=== PATIENT | female | born 1945 | race Caucasian/White ===

== ENCOUNTER 2018-07-07 05:05 | Observation (INO) ==
--- NOTE | 2018-07-07 05:50 | Emergency Department Note ---
Disposition Clinical Impression: Chest pain Qualifiers: Chest pain type: precordial pain Qualified Code(s): R07.2 - Precordial pain Hypertension Qualifiers: Hypertension type: essential hypertension Qualified Code(s): I10 - Essential (primary) hypertension Disposition: Admitted As Inpatient Condition: Fair General Adult HPI - General Stated complaint: chest pain Time Seen by Provider: 07/07/18 05:18 Source: patient, family Mode of arrival: private vehicle Limitations: no limitations Nursing Notes Reviewed: Yes Vital Signs Reviewed: Yes - History of Present Illness HPI Narrative: Patient is a 73-year-old female with past medical history including coronary artery disease with one stent placement on Plavix, diabetes mellitus type 2, hypertension, presenting with chief complaint of chest pain is 2 AM. The patient states yesterday evening she developed right neck pain and muscle spasms. She woke up around 2 AM to left-sided chest pressure radiating into her left jaw. She states the pain started radiating into the substernal area. She denies any associated symptoms including lightheadedness or dizziness, diaphoresis, nausea, shortness of breath. She states this feels very different from the chest pain she was having with her prior heart attack. Denies fevers or chills, cough. She states she took 4 baby aspirin and chest pain is slightly improved. Patient also denies heavy lifting or trauma. Pain Scale: 5 - Related Data Home Medications Medication Instructions Recorded Confirmed Clopidogrel [Plavix] 75 mg PO QAM 07/29/15 07/07/18 Glimepiride [Amaryl] 4 mg PO BID 07/29/15 07/07/18 Pravastatin Sodium [Pravachol] 40 mg PO HS 07/29/15 07/07/18 Albuterol Sulfate [Proair Hfa] 2 puff IH Q4H PRN 05/04/17 07/07/18 Budesonide/Formoterol 160/4.5 2 puff IH BID 05/04/17 07/07/18 [Symbicort 160/4.5] Ascorbate Calcium [Vitamin C] 500 mg PO DAILY 07/07/18 07/07/18 Aspirin [Adult Aspirin Regimen] 81 mg PO HS 07/07/18 07/07/18 Irbesartan [Avapro] 300 mg PO QAM 07/07/18 07/07/18 Metformin HCl [Glumetza] 1,000 mg PO BID 07/07/18 07/07/18 Metoprolol Succinate [Toprol Xl] 50 mg PO HS 07/07/18 07/07/18 Multivit-Minerals/Folic Acid 200 mcg PO DAILY 07/07/18 07/07/18 [Adult One Daily Gummies] RX: hydroCHLOROthiazide 25 mg PO QAM 07/07/18 07/07/18 [Hydrochlorothiazide] SitaGLIPtin [Januvia] 100 mg PO HS 07/07/18 07/07/18 Allergies Allergy/AdvReac Type Severity Reaction Status Date / Time Amoxicillin [From Augmentin] Allergy Rash Verified 04/25/18 11:52 clavulanic acid Allergy Rash Verified 04/25/18 11:52 [From Augmentin] Penicillins Allergy Difficulty Verified 04/25/18 11:52 Breathing All systems ED: reviewed and negative except as stated. Review of Systems: As Per HPI Constitutional: Denies: fever, chills Cardiovascular: Reports: chest pain. Denies: palpitations Respiratory: Denies: cough, dyspnea Gastrointestinal: Denies: abdominal pain, nausea, vomiting Genitourinary: Reports: dysuria Musculoskeletal: Reports: other (muscle spasm). Denies: back pain Integumentary: Denies: rash Neurological: Denies: headache, weakness Past Medical History - Past Medical History Attestation: Yes The following information was validated with the patient. Source: patient Medical history: Reports: non-contributory Psychiatric history: Reports: no psych history - Social History Smoking Status: Never smoker Smokeless Tobacco Status: No Alcohol use: Reports: none Drug use: Reports: none Physical Exam - General Limitations: no limitations General appearance: alert, in no apparent distress - Head Head exam: atraumatic, normocephalic, normal inspection - Eye Eye exam: Present: normal appearance, EOMI - ENT ENT exam: normal oropharynx, mucous membranes moist - Neck Neck exam: Present: normal inspection, trachea midline - Chest Chest inspection: Present: symmetric chest wall rise, tenderness (Left-sided chest wall tenderness to palpation) - Respiratory Respiratory exam: Present: normal lung sounds bilaterally. Absent: respiratory distress, wheezes - Cardiovascular Cardiovascular exam: Present: regular rate, normal rhythm, systolic murmur - Abdominal Exam Abdominal exam: Present: soft, Non-Tender. Absent: distention - Extremities Exam Extremities exam: Present: normal inspection, normal capillary refill. Absent: tenderness, pedal edema, calf tenderness - Neurological Exam Neurological exam: Present: alert, oriented X3 - Psychiatric Psychiatric exam: Present: normal affect, normal mood - Skin Skin exam: Present: warm, dry, intact, normal color Course Vital Signs Temperature 98.3 F 07/07/18 05:13 Pulse Rate 68 07/07/18 05:13 Respiratory Rate 20 07/07/18 05:13 Blood Pressure 213/96 07/07/18 05:13 O2 Sat by Pulse Oximetry 96 07/07/18 05:13 Temperature 98.3 F 07/07/18 05:13 Pulse Rate 68 07/07/18 05:13 Respiratory Rate 20 07/07/18 05:13 Blood Pressure 213/96 07/07/18 05:13 O2 Sat by Pulse Oximetry 96 07/07/18 05:13 Oxygen Delivery Oxygen Delivery Room Air Medical Decision Making - MDM Narrative Medical decision making narrative: Patient presenting with chest pressure since 0200. She took 4 baby aspirin. Has history of coronary artery disease with one stent placement. We will levon luate for ACS and obtain EKG, chest x-ray, basic lab work. We will give the patient nitroglycerin. Well's for PE score 0. Blood pressure elevated otherwise vitals stable. Urinalysis will also be obtained as the patient is complaining of dysuria. 0630 Chest x-ray imaging results reviewed. No acute cardiopulmonary process. Troponin <0.03. Patient refused the nitroglycerin secondary to giving her headaches. Will admit the patient for chest pain and further ACS evaluation. Hospitalist paged. HEART score 4. Blood pressure improved to systolic 176 06:[address] Lincoln who accepts admission. - Medical Records Medical records reviewed: Yes I reviewed the patient's medical records. - Lab Data Lab results reviewed: Yes I reviewed the patient's lab results. Result diagrams: 07/07/18 05:41 07/07/18 05:41 Lab Results 07/07/18 07/07/18 07/07/18 Range/Units 05:35 05:41 05:41 WBC 6.7 (4.3-11.1) K/mcL RBC 5.04 H (3.82-4.97) M/mcL Hgb 13.4 (11.5-15.4) g/dL Hct 40.8 (35.3-44.9) % MCV 81.0 L (83.0-100.0) fL MCH 26.6 L (28.0-33.3) pg MCHC 32.8 (31.6-35.5) g/dL RDW 12.9 (11.5-14.5) % Plt Count 274 (140-400) K/mcL MPV 8.7 L (9.4-12.4) fL Immature Gran % 0.1 (0-4) % Seg Neutrophils % 68.0 % Lymphocytes % 22.0 % Monocytes % 7.1 % Eosinophils % 2.4 % Basophils % 0.4 % Neutrophils # 4.6 (1.6-8.9) K/mcL Lymphocytes # 1.5 (0.6-4.6) K/mcL Monocytes # 0.5 (0.0-1.3) K/mcL Eosinophils # 0.2 (0.0-0.6) K/mcL Basophils # 0.0 (0.0-0.2) K/mcL Sodium 132 L (136-145) mEq/L Potassium 3.5 (3.5-5.1) mEq/L Chloride 94 L (98-107) mEq/L Carbon Dioxide 31 H (23-29) mEq/L BUN 11 (8-23) mg/dL Creatinine 0.62 (0.60-1.20) mg/dL Est GFR ( Amer) > 60 (> 60) Est GFR (Non-Af Amer) > 60 (> 60) BUN/Creatinine Ratio 18 (6-26) Glucose 159 H (70-105) mg/dL Calculated Osmolality 277 L (280-300) Calcium 9.2 (8.6-10.3) mg/dL Troponin I < 0.03 (< 0.04) ng/mL Urine Color Yellow (Yellow) Urine Clarity Clear (Clear) Urine pH 7.0 (5.0-8.0) pH Units Ur Specific [place] 1.008 L (1.010-1.025) Urine Protein 30 H (Neg-Trace) mg/dL Urine Glucose (UA) Normal (Normal) mg/dL Urine Ketones Negative (Negative) mg/dL Urine Blood Trace H (Negative) Urine Nitrite Negative (Negative) Urine Bilirubin Negative (Negative) Urine Urobilinogen Normal (Normal) mg/dL Ur Leukocyte Esterase Negative (Negative) Urine Microscopic RBC 0-3 (0-3) per hpf Urine Microscopic WBC 0-3 (0-3) per hpf Ur Squamous Epith Cells Few (None-Few) per lpf Urine Bacteria None Seen (None-Few) per hpf Hyaline Casts None Seen (None-Few) per lpf Ur Culture Indicated? NO (NO) - Radiology Data Radiology results reviewed: Yes I reviewed the patient's radiology results. Chest X-Ray 07/07/18 05:19 IMPRESSION: No acute findings. Shallow inspiratory effort. D/ / Peter Bowie / Peter Bowie Interpreting Provider: Peter Bowie - EKG Data EKG #1 EKG attestation: Yes I reviewed and interpreted this EKG. EKG results narrative: EKG obtained at 514 shows sinus rhythm with heart rate 69. No ST elevation or depression. T-wave inversion in aVL. SD interval 209, QRS duration 87, QTC 434. Attestation Statement - Attestation Attestation: Dr. Neff note: Patient was seen in conjunction with ER resident Dr. Carreno; please see her charting for complete documentation. I spent [id number] time with the patient and I agree with the patient's treatment and disposition. Patient had chest pain overnight at rest. She also had chest pain that was associated with movement of her chest wall and her left arm and direct palpation of her chest. Prior presentation is not concerning for ACS in the lateral elements, but her initial onset of chest pain with a known history of prior heart disease is slightly concerning. Initial testing is unremarkable. Examination is consistent with structural chest pain but due to the patient's history and not having such symptoms of chest pain until last night she will be admitted for serial cardiac biomarkers and observation. Accepted by the hospitalist prior to admission. Heart Score - Score History: Slightly Suspicious EKG: Normal Age: Greater than 65 Risk Factors: Equal/Greater than 3 risk factor or history of atherosclerotic disease Troponin: Less than normal limit HEART Score Total: 4
[2018-07-07 06:03] LABS: Basophils % 0.4 %; Eosinophils # 0.2 K/mcL (0.0-0.6); Eosinophils % 2.4 %; Hematocrit 40.8 % (35.3-44.9); Hemoglobin 13.4 g/dL (11.5-15.4); Immature Granulocytes % 0.1 % (0-4); Lymphocytes # 1.5 K/mcL (0.6-4.6); Mean Corpuscular HGB Conc 32.8 g/dL (31.6-35.5); Mean Corpuscular Hemoglobin 26.6 pg (28.0-33.3); Mean Platelet Volume 8.7 fL (9.4-12.4); Monocytes # 0.5 K/mcL (0.0-1.3); Monocytes % 7.1 %; Neutrophils # 4.6 K/mcL (1.6-8.9); Platelet Count 274 K/mcL (140-400); Red Blood Count 5.04 M/mcL (3.82-4.97); Red Cell Distribution Width 12.9 % (11.5-14.5)
[2018-07-07] MEDS: Nitroglycerin 0.4 MG TAB.SUBL SL PRN ×2 (06:18→07:10)
[2018-07-07 06:19] LABS: Troponin I < 0.03 ng/mL (< 0.04)
[2018-07-07 06:23] LABS: Bilirubin,Urine Negative (Negative); Blood,Urine Trace (Negative); Clarity,Urine Clear (Clear); Color,Urine Yellow (Yellow); Glucose,Urine (UA) Normal (Normal); Ketones,Urine Negative (Negative); Leukocyte Esterase,Urine Negative (Negative); Nitrite,Urine Negative (Negative); Protein,Urine 30 mg/dL (Neg-Trace); Specific Gravity,Urine 1.008 (1.010-1.025); Urobilinogen,Urine Normal (Normal)
[2018-07-07 06:25] LABS: Bacteria,Urine None Seen per hpf (None-Few); Hyaline Casts,Urine None Seen per lpf (None-Few); RBC,Urine 0-3 per hpf (0-3); Squamous Epithelial Cell,Urine Few per lpf (None-Few); WBC,Urine 0-3 per hpf (0-3)
[2018-07-07 06:30] LABS: BUN/Creatinine Ratio 18 (6-26); Blood Urea Nitrogen 11 mg/dL (8-23); Calcium 9.2 mg/dL (8.6-10.3); Carbon Dioxide 31 mEq/L (23-29); Chloride 94 mEq/L (98-107); Glucose 159 mg/dL (70-105); Osmolality,Calculated 277 (280-300); Potassium 3.5 mEq/L (3.5-5.1); Sodium 132 mEq/L (136-145); eGFR For Non-African Americans > 60 (> 60)
[2018-07-07] MEDS ORDERED: Mag Hydrox/Al Hydrox/Simeth 30 ML UDC PO PRN (07:53)
[2018-07-07] MEDS ORDERED: Naloxone 0.4 MG/ML INJ IVP PRN (07:53)
[2018-07-07] MEDS ORDERED: Regadenoson 0.4 MG/5 ML SYRINGE IVP ONE (08:48)
[2018-07-07] MEDS ORDERED: METOPROLOL TARTRATE 50 MG PO SCH (09:15)
[2018-07-07] MEDS ORDERED: Metoprolol XL (24 HR) Succ 50 MG TAB.ER.24H PO SCH (09:45)
[2018-07-07] MEDS ORDERED: D5% in Water 1,000 ML IVC PRN (10:24)
[2018-07-07] MEDS ORDERED: Dextrose Gel 15 GM/37.5 ML TUBE PO PRN ×2 (10:24)
[2018-07-07] MEDS ORDERED: *HR* Dextrose 50 % in Water (Syg) 50 ML SYRINGE IVP PRN (10:24)
[2018-07-07] MEDS: Insulin LISPRO 300 UNITS/3 ML VIAL SQ SCH ×3 (11:47→21:21)
--- NOTE | 2018-07-07 13:37 | Internal Med History&Physical ---
Date of Encounter: 07/07/18 Time of Encounter: 09:00 Internal Medicine - H&P: HPI Chief complaint: Chest pain Admitted From: Emergency Dept Plans for Post Hospital Care: Home History of present illness: Ms. Galvin is a 73 year old female patient with a history of coronary artery disease and stents 20 years back who presented to the ER with complaints of chest pain. Patient has been having neck and upper back muscle pain over the past few days but began to have chest pain in the central part of her chest ear lier this morning at around 2 AM. She took 3 pills of baby aspirin initially and her pain did not improve. She took another 3 pills of baby aspirin after that. She eventually came to the ER and was given nitroglycerin which seemed to improve her pain. She denies any fevers or chills. Her was present at bedside reports that she has been having exertional dyspnea. She has not followed up with cardiology for a while. She denies any palpitations. No dizziness or lightheadedness. No fevers or chills. She reports that she had an episode of bronchitis earlier this year which required multiple courses of antibiotics. She presently does not have significant cough or sputum producti on. She does complain of sciatica related pain extending from her back to her lower extremities. She also has been having cramps in her lower extremities intermittently. Past Med Surg Social Fam HX - Past Medical History Attestation: Yes The following information was validated with the patient. Source: patient Medical history: coronary artery disease Psychiatric history: no psych history - Past Surgical History Additional surgical history: stent - Social History Smoking Status: Never smoker Smokeless Tobacco Status: No Alcohol use: none Drug use: none - Family History Father History Unknown: Yes Internal Medicine - H&P: Meds Clopidogrel [Plavix] 75 mg PO QAM 07/29/15 [History] Glimepiride [Amaryl] 4 mg PO BID 07/29/15 [History] Pravastatin Sodium [Pravachol] 40 mg PO HS 07/29/15 [History] Albuterol Sulfate [Proair Hfa] 2 puff IH Q4H PRN 05/04/17 [History] Budesonide/Formoterol 160/4.5 [Symbicort 160/4.5] 2 puff IH BID 02/13/18 [History] Ascorbate Calcium [Vitamin C] 500 mg PO DAILY 07/07/18 [History] Aspirin [Adult Aspirin Regimen] 81 mg PO HS 07/07/18 [History] Irbesartan [Avapro] 300 mg PO QAM 07/07/18 [History] Metformin HCl [Glumetza] 1,000 mg PO BID 07/07/18 [History] Metoprolol Succinate [Toprol Xl] 50 mg PO HS 07/07/18 [History] Multivit-Minerals/Folic Acid [Adult One Daily Gummies] 200 mcg PO DAILY 07/07/18 [History] SitaGLIPtin [Januvia] 100 mg PO HS 07/07/18 [History] hydroCHLOROthiazide [Hydrochlorothiazide] 25 mg PO QAM 07/07/18 [History] Allergy/AdvReac Type Severity Reaction Status Date / Time Amoxicillin [From Augmentin] Allergy Rash Verified 04/25/18 11:52 clavulanic acid Allergy Rash Verified 04/25/18 11:52 [From Augmentin] Penicillins Allergy Difficulty Verified 04/25/18 11:52 Breathing All Systems PM: A 10-system review of systems was performed and is negative for pertinent f indings except as documented above in the HPI. - Constitutional Constitutional: no chills, no fever(s), no night sweats - EENT Eyes: no change in vision, no discharge, no pain, no photophobia Ears: no ear discharge, no ear pain, no tinnitus Nose, mouth and throat: no dysphagia, no nasal discharge, no neck pain, no sore throat - Cardiovascular Cardiovascular ROS IM: chest pain, no diaphoresis, no dyspnea, no lightheadedness, no palpitations, no syncope - Respiratory Respiratory: no cough, no dyspnea, no wheezing, no excessive phlegm production - Gastrointestinal Gastrointestinal: no abdominal pain, no diarrhea, no hematemesis, no hematochezia, no melena, no nausea, no vomiting - Genitourinary Genitourinary: no change in urinary stream, no dysuria, no flank pain, no hematuria - Musculoskeletal Musculoskeletal ROS IM: no numbness, no tingling - Integumentary Integumentary IM: no rash, no unusual bruising - Neurological Neurological ROS: no confusion, no convulsions, no focal weakness, no numbness, no tingling, no tremor(s) - Hematologic/Lymphatic Hematologic/Lymphatic: no easy bruising - Constitutional Vitals: Temp Pulse Resp BP Pulse Ox 98.2 F 71 16 189/89 92 07/07/18 11:39 07/07/18 11:39 07/07/18 11:39 07/07/18 11:39 07/07/18 11:39 General appearance: Present: cooperative, mild distress, A&O X 3, pleasant, answers questions appropriately Exam: General: Patient is alert, no acute distress, oriented x 3 Head: atraumatic, normocephalic, ENT: Mucous membranes moist Eye: normal appearance, PERRL, no scleral icterus, no conjunctival injection Neck: normal inspection, trachea midline, full ROM, no carotid bruits Chest: normal inspection, symmetric chest rise, chest wall tenderness present in the central chest Respiratory: Good respiratory effort. Normal breath sounds. No wheezing or crackles. Cardiovascular: Regular rate and rhythm. s1 and s2 normal systolic murmur . No pedal edema Abdomen: Abdomen is soft, nontender. Bowel sounds are present Musculoskeletal: Spontaneously moving all extremities Skin: warm, dry, intact. Neuro: Alert oriented x 3 normal cranial nerves, no focal deficits Psych: Patient's affect is normal Internal Med - H&P Results - Labs CBC & Chem 7: 07/07/18 05:41 07/07/18 05:41 Labs: Short CBC 07/07/18 Range/Units 05:41 WBC 6.7 (4.3-11.1) K/mcL Hgb 13.4 (11.5-15.4) g/dL Hct 40.8 (35.3-44.9) % Plt Count 274 (140-400) K/mcL Neutrophils # 4.6 (1.6-8.9) K/mcL BMP 07/07/18 05:41 Sodium 132 L Potassium 3.5 Chloride 94 L Carbon Dioxide 31 H BUN 11 Creatinine 0.62 Glucose 159 H Calcium 9.2 Cardiac Enzymes 07/07/18 07/07/18 Range/Units 05:41 10:54 Troponin I < 0.03 0.03 (< 0.04) ng/mL Urine 07/07/18 Range/Units 05:35 Urine Color Yellow (Yellow) Urine Clarity Clear (Clear) Urine pH 7.0 (5.0-8.0) pH Units Ur Specific [place] 1.008 L (1.010-1.025) Urine Protein 30 H (Neg-Trace) mg/dL Urine Glucose (UA) Normal (Normal) mg/dL - EKG Data EKG shows normal: sinus rhythm - EKG Data EKG comments: 07/07/18 13:39 LVH - Impressions ITS Impressions Chest X-Ray 07/07/18 05:19 IMPRESSION: No acute findings. Shallow inspiratory effort. D/ / Peter Bowie / Peter Bowie Interpreting Provider: Peter Bowie - Assessment and Plan (1) Chest pain Current Visit: Yes Status: Acute Assessment and plan: Patient presented with chest pain that is precordial but reproducible. However it was relieved after she received nitroglycerin and patient does have a history of coronary artery disease. High risk for ACS. Will monitor with telemetry. Trend troponins. Troponins are negative, we will set up for a cardiac stress test. Qualifiers: Chest pain type: precordial pain Qualified Code(s): R07.2 - Precordial pain (2) Diabetes mellitus, type 2 Current Visit: Yes Status: Chronic Assessment and plan: Blood sugars will be monitored. Patient will placed on sliding scale insulin. Hold oral anti-glycemic agents for now. Check A1c. Qualifiers: Diabetes mellitus intermodal dispatcher insulin use: without intermodal dispatcher use Diabetes mellitus complication status: with hyperglycemia Qualified Code(s): E11.65 - Type 2 diabetes mellitus with hyperglycemia (3) Coronary artery disease Current Visit: Yes Status: Chronic Assessment and plan: Patient reported chest pain which is being evaluated. Continue aspirin, Plavix and statin. Qualifiers: Coronary Disease-Associated Artery/Lesion type: [place] artery [place] vs. transplanted heart: [place] heart Associated angina: with other forms of angina Qualified Code(s): I25.118 - Atherosclerotic heart disease of [place] coronary artery with other forms of angina pectoris (4) Hypertension Current Visit: Yes Status: Chronic Assessment and plan: Blood pressure was elevated earlier today. We will continue to monitor. Resume home medications. Will place patient on intravenous medications if her blood pressure is persistently greater than 180. Qualifiers: Hypertension type: essential hypertension Qualified Code(s): I10 - Essential (primary) hypertension (5) Moderate aortic stenosis Current Visit: Yes Status: Chronic Assessment and plan: Per echocardiogram done last year, patient had moderate aortic stenosis with a mean gradient of 21 mmHg, peak will of stay is 2.91. Will repeat echocardiogram at this time to reevaluate. - Time Spent With Patient Total time spent is greater than 50% in coordination of care (as documented) at patient's floor/unit and/or counseling patient:
[2018-07-07] MEDS: Acetaminophen 325 MG TABLET PO PRN ×2 (16:12→22:35)
--- NOTE | 2018-07-07 17:23 | Electrocardiograph Report ---
[place] [id number] Test Date: 2018-07-07 Pat Name: Aria Galvin Department: EXAM3 Room: [facility] Gender: F Ground Equipment Mechanic: : [id number] Requested By: Inge Carreno Order Number: [id number] Reading MD: Lu Gurrola Measurements Intervals [place] Rate: 69 P: 33 CT: 209 QRS: 23 QRSD: 87 T: 77 QT: 405 QTc: 434 Interpretive Statements Sinus rhythm LVH with secondary repolarization abnormality Electronically Signed On 07-07-2018 17:21:34 EDT by Lu Gurrola
[2018-07-07] MEDS: hydroCHLOROthiazide 25 MG TABLET PO SCH (17:40)
[2018-07-07] MEDS ORDERED: Budesonide/Formoterol 160/4.5 1 PUFF INH IH SCH (21:00)
[2018-07-07] MEDS: Metoprolol XL (24 HR) Succ 50 MG TAB.ER.24H PO SCH (22:35)
[2018-07-08] MEDS: Ondansetron 4 MG/2 ML VIAL IVP PRN (04:18)
[2018-07-08 04:28] LABS: Prothrombin Time 11.6 Seconds (9.4-12.1)
[2018-07-08 04:32] LABS: Chol/HDL Ratio 2.3 (0-4.9)
[2018-07-08] MEDS: Budesonide/Formoterol 160/4.5 1 PUFF INH IH SCH ×2 (08:17→19:50)
[2018-07-08] MEDS: hydroCHLOROthiazide 25 MG TABLET PO SCH (08:31)
[2018-07-08] MEDS: Acetaminophen 325 MG TABLET PO PRN (08:31)
[2018-07-08] MEDS: Metoprolol XL (24 HR) Succ 50 MG TAB.ER.24H PO SCH (08:32)
[2018-07-08] MEDS: Insulin LISPRO 300 UNITS/3 ML VIAL SQ SCH ×4 (08:32→21:14)
[2018-07-08] MEDS: *HR* Metformin 500 MG TABLET PO SCH ×2 (08:32→17:23)
[2018-07-08] MEDS: Aspirin 81 MG TAB.CHEW PO SCH (08:32)
[2018-07-08 08:56] LABS: Estimated Average Glucose 169 mg/dl; Hemoglobin A1C 7.5 %
--- NOTE | 2018-07-08 15:36 | Internal Med Progress Note ---
Hospitalist Progress Note - Encounter Date of Encounter: 07/08/18 Time of Encounter: 15:35 - Subjective Interval History: Evaluated patient earlier today. Soon after I examined her, she received her medications and has been having complaints of dizziness since then. She states that it is present even when she is lying down but gets worse when she stands up. No chest pain or palpitations. No shortness of breath. - Exam Vitals: Temp Pulse Resp BP Pulse Ox 98.0 F 65 18 157/82 94 07/08/18 11:12 07/08/18 11:12 07/08/18 11:12 07/08/18 11:12 07/08/18 11:12 Exam: General: Patient is alert, mild distress, oriented x 3 ENT: Mucous membranes moist Respiratory: Good respiratory effort. Normal breath sounds. No wheezing or crackles. Cardiovascular: Regular rate and rhythm. s1 and s2 normal No clicks, rubs, gallops, or murmurs. No pedal edema Abdomen: Abdomen is soft, nontender. Bowel sounds are present Musculoskeletal: Spontaneously moving all extremities Skin: warm, dry, intact. Neuro: Alert oriented x 3 normal cranial nerves, no focal deficits - Assessment and Plan (1) Chest pain Current Visit: Yes Status: Acute Assessment and Plan: Chest pain has significantly improved. Most likely musculoskeletal in nature. Stress test negative. Echocardiogram shows normal ejection fraction. Patient does have LV diastolic dysfunction and moderate to severe aortic stenosis. These will need to be followed as outpatient. (2) Diabetes mellitus, type 2 Current Visit: Yes Status: Chronic Assessment and Plan: A1c 7.5. Continue monitoring blood sugars. Patient receiving metformin and subcutaneous insulin (3) Coronary artery disease Current Visit: Yes Status: Chronic Assessment and Plan: Continue aspirin, statin and Plavix. (4) Hypertension Current Visit: Yes Status: Chronic Assessment and Plan: Blood pressure was high last night and she received IV hydralazine. Her blood pressure decreased quickly soon after. It has since improved. However she now describes dizziness. Most likely related to multiple antihypertensive medications she received. Patient reports that she takes metoprolol at night. She did receive this medication today morning in addition to losartan and hydrochlorothiazide. Likely causing her symptoms of dizziness. Will monitor patient overnight in the hospital today. Possibly discharge tomorrow if her symptoms improve. (5) Moderate aortic stenosis Current Visit: Yes Status: Chronic Assessment and Plan: Echocardiogram shows moderate to severe aortic stenosis. Will consult cardiology to evaluate. DVT Prophylaxis: Subcutaneous heparin - Time Spent with Patient Total time spent is greater than 50% in coordination of care (as documented) at patient's floor/unit and/or counseling patient: Internal Medicine: Result - Labs CBC & Chem 7: 07/07/18 05:41 07/07/18 05:41 Labs: Cardiac Enzymes 07/07/18 Range/Units 17:37 Troponin I < 0.03 (< 0.04) ng/mL - ABG Interpretation ABG results: PT/INR, D-dimer PT 11.6 Seconds (9.4-12.1) 07/08/18 03:58 - Impressions Impressions Echocardiogram 07/07/18 07:53 Impressions: LVEF 60%. Moderate concentric left ventricular hypertrophy. LV diastolic dysfunction with elevated filling pressures. Right ventricular structure is not optimally seen. Function normal by Doppler. Moderate-severe aortic stenosis. Mild aortic regurgitation. Mild mitral regurgitation. No pulmonary hypertension. Left Ventricular Wall Motion: Rest Echo Findings The apex, apical inferior, mid inferior, basal inferior, apical anterior, mid anterior and basal anterior cherry were not visualized. All other wall segments showed normal motion. Findings: Study Quality * Technically adequate exam. ECG Findings * Normal sinus rhythm. Left Ventricle * LVEF 60%. * Moderate concentric left ventricular hypertrophy. * LV diastolic dysfunction with elevated filling pressures. Right Ventricle * Right ventricular structure is not optimally seen. Function normal by Doppler. Left Atrium * Moderately dilated left atrium. Right Atrium * Normal right atrial size. Aortic Valve * Aortic valve not well visualized. * Moderate-severe aortic stenosis. PV 3m/s, MG 22 mmHg, DI 0.33, ALEKS 1.0cm2 * Mild aortic regurgitation. Mitral Valve * Mildly calcified mitral valve leaflets. * Mild mitral regurgitation. * No mitral stenosis. Tricuspid Valve * Tricuspid valve not well visualized. * Estimated RA pressure is 8 mmHg. Pulmonic Valve * Pulmonic valve is not well visualized. * No pulmonic stenosis. * No pulmonic regurgitation. Pulmonary Artery * Pulmonary artery not well visualized. Aorta * Normally sized aortic root. Pericardium * There is no pericardial effusion present. Interatrial Septum * No evidence of PFO by color Doppler. IVC * The IVC is not dilated. * < 50% respiratory change. Consult Discharge Plan - Plan (1) Chest pain Qualifiers: Chest pain type: precordial pain Qualified Code(s): R07.2 - Precordial pain (2) Diabetes mellitus, type 2 Qualifiers: Diabetes mellitus senior care insulin use: without senior care use Diabetes mellitus complication status: with hyperglycemia Qualified Code(s): E11.65 - Type 2 diabetes mellitus with hyperglycemia (3) Coronary artery disease Qualifiers: Coronary Disease-Associated Artery/Lesion type: [place] artery [place] vs. transplanted heart: [place] heart Associated angina: with other forms of angina Qualified Code(s): I25.118 - Atherosclerotic heart disease of [place] coronary artery with other forms of angina pectoris (4) Hypertension Qualifiers: Hypertension type: essential hypertension Qualified Code(s): I10 - Essential (primary) hypertension
[2018-07-08] MEDS: *HR* Heparin 5,000 UNIT/ML VIAL SQ SCH (17:23)
[2018-07-08] MEDS ORDERED: *HR* SitaGLIPtin 100 MG TABLET PO SCH (21:00)
[2018-07-09] MEDS: *HR* Heparin 5,000 UNIT/ML VIAL SQ SCH (06:25)
[2018-07-09] MEDS: Ondansetron 4 MG/2 ML VIAL IVP PRN (08:22)
[2018-07-09] MEDS: *HR* Metformin 500 MG TABLET PO SCH (08:23)
[2018-07-09] MEDS: hydroCHLOROthiazide 25 MG TABLET PO SCH (08:23)
[2018-07-09] MEDS: Insulin LISPRO 300 UNITS/3 ML VIAL SQ SCH ×2 (08:23→11:42)
[2018-07-09] MEDS: Aspirin 81 MG TAB.CHEW PO SCH (08:23)
--- NOTE | 2018-07-09 10:11 | Cardiology Consult Note ---
Addendum entered and electronically signed by Trip Robertson MD 07/10/18 12:55: I examined this patient and my medical decision-making was reviewed with the ENTRY LEVEL FINANCE. I agree with the documented findings, disposition and treatment plan as described except to the extent set forth below. A/P: Moderate aortic stenosis Chest pain ruled out DE CAD sp PCI FU closely as outpatient. If continued symptoms, consider stress testing Thank you for the consult and allowing me to participate in your patient's care Trip Robertson MD [facility] Original Note: Date of Encounter: 07/09/18 Time of Encounter: 10:10 Assessment and Plan (1) Chest pain Current Visit: Yes Status: Acute Per Cardiology: Atypical presentation. Troponin - x 3. ST negative for ischemia or infarct. History of CAD with remote stenting. On aspirin, statin, Plavix, beta wong, ARB. Qualifiers: Chest pain type: precordial pain Qualified Code(s): R07.2 - Precordial pain (2) Moderate aortic stenosis Current Visit: Yes Status: Chronic Per Cardiology: Echo from 2018 showed moderate aortic stenosis with mean gradient of 21 and peak velocity 2.91 m/s. Current echo shows: Impressions: LVEF 60%. Moderate concentric left ventricular hypertrophy. LV diastolic dysfunction with elevated filling pressures. Right ventricular structure is not optimally seen. Function normal by Doppler. Moderate-severe aortic stenosis. Mild aortic regurgitation. Mild mitral regurgitation. No pulmonary hypertension. Left Ventricular Wall Motion: Rest Echo Findings The apex, apical inferior, mid inferior, basal inferior, apical anterior, mid anterior and basal anterior cherry were not visualized. All other wall segments showed normal motion. Clinically appears stable. We will continue to monitor in outpatient setting. Follow-up arranged to reestablish care. All questions answered. Discussed with primary service. Discussed with Dr. Robertson, cardiology signing off, reconsult as needed, follow-up arranged. Discussion w patient/family: The assessment and plan as outlined above was discussed with the patient and/or family members who expressed understanding and agreement. All questions were answered. Thank you for involving us in the care of your patient. Please call with any questions. History of Present Illness Consult date: 07/09/18 Requesting physician: Ayaz Robison Consult reason: Aortic Stenosis, needs cardiology f/u Chief complaint: CP History of present illness: Previous records reviewed: "Ms. Galvin is a 73 year old female patient with a history of coronary artery disease and stents 20 years back who presented to the ER with complaints of chest pain. Patient has been having neck and upper back muscle pain over the past few days but began to have chest pain in the central part of her chest earlier this morning at around 2 AM. She took 3 pills of baby aspirin initially and her pain did not improve. She took another 3 pills of baby aspirin after that. She eventually came to the ER and was given nitroglycerin which seemed to improve her pain." Cardiology consult for moderate to severe aortic stenosis and need of follow-up. Patient has relevant past medical history of CAD, DM2, aortic stenosis. Patient's confirm the above presentation. Reports symptoms were reproducible with palpation. Currently chest pain-free. She denies any dizziness, syncope, falls. Reports has not seen cardiology in a few years and used to see Dr. Mendiola in the past. Denies any active bleeding or blood loss. Past Med Surg Social Fam HX - Past Medical History Attestation: Yes The following information was validated with the patient. Source: patient, old records reviewed, obtained from family Medical history: non-contributory, coronary artery disease, valvular heart disease Psychiatric history: no psych history - Past Surgical History Additional surgical history: stent - Social History Smoking Status: Never smoker Smokeless Tobacco Status: No Alcohol use: none Drug use: none - Family History Father History Unknown: Yes Medications and Allergies Clopidogrel [Plavix] 75 mg PO QAM 07/29/15 [History] Glimepiride [Amaryl] 4 mg PO BID 07/29/15 [History] Pravastatin Sodium [Pravachol] 40 mg PO HS 07/29/15 [History] Albuterol Sulfate [Proair Hfa] 2 puff IH Q4H PRN 05/04/17 [History] Budesonide/Formoterol 160/4.5 [Symbicort 160/4.5] 2 puff IH BID 05/04/17 [History] Ascorbate Calcium [Vitamin C] 500 mg PO DAILY 07/07/18 [History] Aspirin [Adult Aspirin Regimen] 81 mg PO HS 07/07/18 [History] Irbesartan [Avapro] 300 mg PO QAM 07/07/18 [History] Metformin HCl [Glumetza] 1,000 mg PO BID 07/07/18 [History] Metoprolol Succinate [Toprol Xl] 50 mg PO HS 07/07/18 [History] Multivit-Minerals/Folic Acid [Adult One Daily Gummies] 200 mcg PO DAILY 07/07/18 [History] SitaGLIPtin [Januvia] 100 mg PO HS 07/07/18 [History] hydroCHLOROthiazide [Hydrochlorothiazide] 25 mg PO QAM 07/07/18 [History] Allergy/AdvReac Type Severity Reaction Status Date / Time Amoxicillin [From Augmentin] Allergy Rash Verified 04/25/18 11:52 clavulanic acid Allergy Rash Verified 04/25/18 11:52 [From Augmentin] Penicillins Allergy Difficulty Verified 04/25/18 11:52 Breathing All Systems Review: The remainder of the systems were reviewed and are negative - Cardiovascular Cardiovascular: as per HPI, chest pain at rest, dyspnea on exertion, radiating jaw, neck or arm pain Physical Examination Vital Signs, Last 4 Hours Temp Pulse Resp BP Pulse Ox 07/09/18 07:39 97.7 F 58 16 179/90 95 General: Conversant, No Apparent Distress HEENT: Atraumatic, Normocephaly, Mucus Membranes Moist Neck: No JVD, Normal carotid pulses Cardiac: Reg Rate and Rhythm, Normal S1 and S2, Other (Grade IV/ murmur) Lungs: Normal Breath Sounds, No Wheeze, Rales, Rhonchi Neuro: Alert and responsive, No focal deficits noted Abdomen: Soft, Non-Tender Skin: No rashes noted on visualized skin Musculoskeletal: No Chest Wall Tenderness Extremities: No Clubbing, No Cyanosis, No Edema, Normal Pulses Results 07/07/18 05:41 07/07/18 05:41 Laboratory Tests 07/07/18 07/07/18 07/07/18 05:41 10:54 17:37 Troponin I < 0.03 0.03 < 0.03 ITS Impressions Chest X-Ray 07/07/18 05:19 IMPRESSION: No acute findings. Shallow inspiratory effort. D/ / Peter Bowie / Peter Bowie Interpreting Provider: Peter Bowie Echocardiogram 07/07/18 07:53 Impressions: LVEF 60%. Moderate concentric left ventricular hypertrophy. LV diastolic dysfunction with elevated filling pressures. Right ventricular structure is not optimally seen. Function normal by Doppler. Moderate-severe aortic stenosis. Mild aortic regurgitation. Mild mitral regurgitation. No pulmonary hypertension. Left Ventricular Wall Motion: Rest Echo Findings The apex, apical inferior, mid inferior, basal inferior, apical anterior, mid anterior and basal anterior cherry were not visualized. All other wall segments showed normal motion. Findings: Study Quality * Technically adequate exam. ECG Findings * Normal sinus rhythm. Left Ventricle * LVEF 60%. * Moderate concentric left ventricular hypertrophy. * LV diastolic dysfunction with elevated filling pressures. Right Ventricle * Right ventricular structure is not optimally seen. Function normal by Doppler. Left Atrium * Moderately dilated left atrium. Right Atrium * Normal right atrial size. Aortic Valve * Aortic valve not well visualized. * Moderate-severe aortic stenosis. PV 3m/s, MG 22 mmHg, DI 0.33, ALEKS 1.0cm2 * Mild aortic regurgitation. Mitral Valve * Mildly calcified mitral valve leaflets. * Mild mitral regurgitation. * No mitral stenosis. Tricuspid Valve * Tricuspid valve not well visualized. * Estimated RA pressure is 8 mmHg. Pulmonic Valve * Pulmonic valve is not well visualized. * No pulmonic stenosis. * No pulmonic regurgitation. Pulmonary Artery * Pulmonary artery not well visualized. Aorta * Normally sized aortic root. Pericardium * There is no pericardial effusion present. Interatrial Septum * No evidence of PFO by color Doppler. IVC * The IVC is not dilated. * < 50% respiratory change. Active Medications Acetaminophen (Tylenol) 650 mg PO Q6HR PRN PRN Reason: pain Stop: 01/06/19 15:09 Last Admin: 07/08/18 08:31 Dose: 650 mg Al Hydrox/Mg Hydrox/Simethicone (Maalox) 15 ml PO Q6HR PRN PRN Reason: Dyspepsia Stop: 01/06/19 07:54 Albuterol Sulfate (Albuterol Inhaler) 2 puff IH Q4H PRN PRN Reason: Shortness Of Breath Stop: 01/06/19 12:00 Aspirin (Aspirin) 81 mg PO DAILY [facility]OLY Stop: 01/07/19 09:01 Last Admin: 07/09/18 08:23 Dose: 81 mg Atorvastatin Calcium (Lipitor) 40 mg PO HS [facility]OLY Stop: 01/06/19 21:01 Last Admin: 07/08/18 20:00 Dose: 40 mg Budesonide/Formoterol Fumarate (Symbicort) 2 puff IH BIDR [facility]; Protocol Stop: 01/07/19 10:01 Last Admin: 07/08/18 19:50 Dose: 2 puff Clopidogrel Bisulfate (Plavix) 75 mg PO DAILY [facility] Stop: 01/06/19 09:16 Last Admin: 07/09/18 08:23 Dose: 75 mg Dextrose/Water (Dextrose 50% (Syg)) 25 ml IVP AD PRN PRN Reason: Hypoglycemia Stop: 01/06/19 10:25 Glucagon (Glucagen) 1 mg IM ONCE PRN PRN Reason: Hypoglycemia Stop: 01/06/19 10:25 Glucose (Gluctose) 15 gm PO ONCE PRN PRN Reason: Hypoglycemia Stop: 01/06/19 10:25 Glucose (Gluctose) 30 gm PO ONCE PRN PRN Reason: Hypoglycemia Stop: 01/06/19 10:25 Heparin Sodium (Porcine) (Heparin) 5,000 unit SQ Q12HCO [facility] Stop: 01/07/19 18:01 Last Admin: 07/09/18 06:25 Dose: 5,000 unit Hydrochlorothiazide (Hydrochlorothiazide) 25 mg PO QAM [facility]; Protocol Stop: 01/06/19 12:00 Last Admin: 07/09/18 08:23 Dose: 25 mg Dextrose (Dextrose 5%) 1,000 mls @ 100 mls/hr IVC .Q10H PRN PRN Reason: HYPOGLYCEMIA Stop: 01/06/19 10:25 Insulin Human Lispro (Humalog) 0 units SQ TIDAC [facility]; Protocol Stop: 01/06/19 11:31 Last Admin: 07/09/18 08:23 Dose: Not Given Insulin Human Lispro (Humalog) 0 units SQ [facility]; Protocol Stop: 01/06/19 21:01 Last Admin: 07/08/18 21:14 Dose: Not Given Losartan Potassium (Co[facility]ar) [facility] [place] Stop: 01/06/19 12:01 Last Admin: 07/09/18 08:23 Dose: 100 mg Metformin HCl (Glucophage) 1,000 mg PO BIDWM [facility]; Protocol Stop: 01/07/19 08:01 Last Admin: 07/09/18 08:23 Dose: 1,000 mg Metoprolol Succinate (Toprol Xl) 50 mg PO [facility] Stop: 01/08/19 21:01 Naloxone HCl (Narcan) 0.4 mg IVP Q2M PRN PRN Reason: SEE COMMENTS Stop: 01/06/19 07:54 Nitroglycerin (Nitroglycerin) 0.4 mg SL Q5M PRN PRN Reason: Chest Pain Stop: 01/06/19 05:50 Last Admin: 07/07/18 07:10 Dose: 0.4 mg Ondansetron HCl (Zofran) 4 mg IVP Q8HR PRN; Protocol PRN Reason: Nausea And Vomiting Stop: 01/07/19 04:02 Last Admin: 07/09/18 08:22 Dose: 4 mg Sitagliptin Phosphate (Januvia) 100 mg PO [facility] Stop: 01/08/19 21:01 - Imaging and Cardiology Echo: report reviewed - EKG Interpretation EKG results cardiology: personally reviewed, normal ECG, sinus rhythm Consult Discharge Plan - Plan Referrals: Mandie Lanza MD [Primary Care Provider] - 07/18/18 1:45 pm
[2018-07-09] MEDS: Budesonide/Formoterol 160/4.5 1 PUFF INH IH SCH (11:00)
[2018-07-09 11:27] VITALS: BP 151/77
[2018-07-09] MEDS: Acetaminophen 325 MG TABLET PO PRN (11:53)
--- NOTE | 2018-07-09 12:10 | Discharge Summary ---
- NOTES TO OUTPATIENT PROVIDER Notes to Outpatient Provider: Patient with a history of coronary artery disease and prior stents who presented to the ER with complaints of chest pain that resolved with nitroglycerin that she received in the ER. She had taken aspirin prior to coming in. She was evaluated in the ER with an EKG and troponins which were negative for ischemia. She then underwent nuclear cardiac stress test which did not show any reversible ischemia. Patient had been hypertensive since initial presentation she received hydralazine once. Her blood pressure decreases quickly and this is likely due to moderate to severe aortic stenosis that was diagnosed on echocardiogram done on the patient. Reviewing her old rec ords, she has had aortic stenosis but has not been following up with cardiology recently. Cardiology was consulted and they do not recommend any further inpatient workup. They have arrange for outpatient follow-up. Patient is not currently on any preload reducing medications and these medications should be avoided further. At this time, patient is clinically stable for discharge. She will follow up with her primary care provider and skip pitman for further management. Patient does have symptoms of orthostasis occasionally and is recommended to stand up slowly and take time before ambulating after standing up. Orders not resulted at time of discharge: Pending orders 07/07/18 11:00 NM dari perf SPECT multi [NM] Routine Date of Encounter: 07/09/18 Time of Encounter: 09:25 - Discharge Diagnosis (1) Chest pain Priority: Primary Status: Resolved Qualifiers: Chest pain type: precordial pain Qualified Code(s): R07.2 - Precordial pain (2) Diabetes mellitus, type 2 Priority: Secondary Status: Chronic Qualifiers: Diabetes mellitus director of respiratory therapy insulin use: without usp use Diabetes mellitus complication status: with hyperglycemia Qualified Code(s): E11.65 - Type 2 diabetes mellitus with hyperglycemia (3) Coronary artery disease Priority: Secondary Status: Chronic Qualifiers: Coronary Disease-Associated Artery/Lesion type: [place] artery [place] vs. transplanted heart: [place] heart Associated angina: with other forms of angina Qualified Code(s): I25.118 - Atherosclerotic heart disease of [place] coronary artery with other forms of angina pectoris (4) Hypertension Priority: Secondary Status: Chronic Qualifiers: Hypertension type: essential hypertension Qualified Code(s): I10 - Essential (primary) hypertension (5) Moderate aortic stenosis Priority: Secondary Status: Chronic Hospital course: Ms. Galvin is a 73 year old female Patient with a history of coronary artery disease and prior stents who presented to the ER with complaints of chest pain that resolved with nitroglycerin that she received in the ER. She had taken aspirin prior to coming in. She was evaluated in the ER with an EKG and troponins which were negative for ischemia. She then underwent nuclear cardiac stress test which did not show any reversible ischemia. Patient had been hypertensive since initial presentation she received hydralazine once. Her blood pressure decreases quickly and this is likely due to moderate to severe aortic stenosis that was diagnosed on echocardiogram done on the patient. Reviewing her old records, she has had aortic stenosis but has not been following up with cardiology recently. Cardiology was consulted and they do not recommend any further inpatient workup. They have arrange for outpatient follow-up. Patient is not currently on any preload reducing medications and these medications should be avoided further. At this time, patient is clinically stable for discharge. She will follow up with her primary care provider and skip pitman for further management. Patient does have symptoms of orthostasis occasionally and is recommended to stand up slowly and take time before ambulating after standing up. Discharge discussed with: patient, family, nurse, investment consultant - Time Spent with Patient Total time spent providing and/or coordinating discharge services: Time spent: Greater than 30 minutes (45 min) - Discharge Medications Prescriptions: Continue Clopidogrel [Plavix] 75 mg PO QAM Pravastatin Sodium [Pravachol] 40 mg PO HS Glimepiride [Amaryl] 4 mg PO BID Budesonide/Formoterol 160/4.5 [Symbicort 160/4.5] 2 puff IH BID Albuterol Sulfate [Proair Hfa] 2 puff IH Q4H PRN PRN Reason: Shortness Of Breath Aspirin [Adult Aspirin Regimen] 81 mg PO HS hydroCHLOROthiazide [Hydrochlorothiazide] 25 mg PO QAM Irbesartan [Avapro] 300 mg PO QAM Metformin HCl [Glumetza] 1,000 mg PO BID Metoprolol Succinate [Toprol Xl] 50 mg PO HS SitaGLIPtin [Januvia] 100 mg PO HS Ascorbate Calcium [Vitamin C] 500 mg PO DAILY Multivit-Minerals/Folic Acid [Adult One Daily Gummies] 200 mcg PO DAILY Home Medications: Clopidogrel [Plavix] 75 mg PO QAM 07/29/15 [History] Glimepiride [Amaryl] 4 mg PO BID 07/29/15 [History] Pravastatin Sodium [Pravachol] 40 mg PO HS 07/29/15 [History] Albuterol Sulfate [Proair Hfa] 2 puff IH Q4H PRN 05/04/17 [History] Budesonide/Formoterol 160/4.5 [Symbicort 160/4.5] 2 puff IH BID 05/04/17 [History] Ascorbate Calcium [Vitamin C] 500 mg PO DAILY 07/07/18 [History] Aspirin [Adult Aspirin Regimen] 81 mg PO HS 07/07/18 [History] Irbesartan [Avapro] 300 mg PO QAM 07/07/18 [History] Metformin HCl [Glumetza] 1,000 mg PO BID 07/07/18 [History] Metoprolol Succinate [Toprol Xl] 50 mg PO HS 07/07/18 [History] Multivit-Minerals/Folic Acid [Adult One Daily Gummies] 200 mcg PO DAILY 07/07/18 [History] SitaGLIPtin [Januvia] 100 mg PO HS 07/07/18 [History] hydroCHLOROthiazide [Hydrochlorothiazide] 25 mg PO QAM 07/07/18 [History] Allergies/Adverse Reactions: Allergy/AdvReac Type Severity Reaction Status Date / Time Amoxicillin [From Augmentin] Allergy Rash Verified 04/25/18 11:52 clavulanic acid Allergy Rash Verified 04/25/18 11:52 [From Augmentin] Penicillins Allergy Difficulty Verified 04/25/18 11:52 Breathing Date of admission: 07/07/18 06:53 Primary care physician: Mandie Lanza Consults: 07/08/18 16:19 Consult to Cardiology [CONS] Routine Comment: Consulting Provider: Cardiology Ally Reason for Consult: Moderate to severe aortic stenosis Time Notified: 16:19 Call Completed: Yes Discharging clinician: Ayaz Robison Anticipated date of discharge: 07/09/18 - Constitutional Vitals: Temp Pulse Resp BP Pulse Ox 97.8 F 68 16 151/77 96 07/09/18 11:26 07/09/18 11:26 07/09/18 11:26 07/09/18 11:26 07/09/18 11:26 General appearance: Present: cooperative, A&O X 3, pleasant, no acute distress, answers questions appropriately Exam: . - Respiratory Respiratory exam: Present: CTAB. Absent: accessory muscle use, rales, rhonchi, wheezes - Cardiovascular Cardiovascular exam: Present: RRR, +S1, +S2, systolic murmur. Absent: diastolic murmur, gallop, rubs - Extremities Exam Extremities exam: Present: warm, radial pulses palpable and symmetrical. Absent: calf tenderness, cyanotic, pedal edema - Patient Status Disposition: Home, Self-Care Condition: Good Functional capacity at discharge: independent ambulation Overall status at discharge: patient is progressing back to baseline - Discharge Instructions Instructions: Diabetes Mellitus Type 2 in Adults (DC), Chronic Hypertension (DC) Follow Up With: Mandie Lanza MD [Primary Care Provider] - 07/18/18 1:45 pm Forms: ED Satisfaction Letter - Diet and Activity Activity: increase activity as tolerated Diet: advance to your usual diet, diabetic diet, low fat, low cholesterol, low salt diet
[2018-07-09] MEDS ORDERED: Metoprolol XL (24 HR) Succ 50 MG TAB.ER.24H PO SCH (21:00)
[2018-07-09] MEDS ORDERED: *HR* SitaGLIPtin 100 MG TABLET PO SCH (21:00)
== END 2018-07-09 13:18 | disposition home or self-care (01) ==
LOC: 2SOUTHHOLD 05:05 → EMEROOARM 05:05 → 2SOUTHHOLD 08:00 → 2ANU 19:07
PROVIDERS: ADMIT Pediatrics; ATTEND Pediatrics

== ENCOUNTER 2019-12-18 10:48 | Observation (INO) ==
[2019-12-18 11:23] LABS: Basophils % 0.4 %; Eosinophils # 0.1 K/mcL (0.0-0.6); Eosinophils % 1.6 %; Hemoglobin 13.9 g/dL (11.5-15.4); Immature Granulocytes % 0.2 % (0-4); Lymphocytes # 1.5 K/mcL (0.6-4.6); Mean Corpuscular HGB Conc 32.3 g/dL (31.6-35.5); Mean Corpuscular Hemoglobin 25.6 pg (28.0-33.3); Mean Corpuscular Volume 79.2 fL (83.0-100.0); Mean Platelet Volume 8.8 fL (9.4-12.4); Monocytes # 0.5 K/mcL (0.0-1.3); Monocytes % 5.7 %; Neutrophils # 6.1 K/mcL (1.6-8.9); Platelet Count 326 K/mcL (140-400); Red Blood Count 5.43 M/mcL (3.82-4.97); Red Cell Distribution Width 12.8 % (11.5-14.5); Segmented Neutrophils % 74.1 %; White Blood Count 8.2 K/mcL (4.3-11.1)
[2019-12-18 11:30] LABS: Prothrombin Time 11.1 Seconds (9.4-12.1)
[2019-12-18 11:32] LABS: Activated Partial Thrombo Time 35.4 Seconds (26.0-36.0)
[2019-12-18 11:42] LABS: BUN/Creatinine Ratio 23 (6-26); Blood Urea Nitrogen 18 mg/dL (8-23); Calcium 9.6 mg/dL (8.6-10.3); Carbon Dioxide 28 mEq/L (23-29); Chloride 88 mEq/L (98-107); Glucose 215 mg/dL (70-105); Osmolality,Calculated 272 (280-300); Potassium 4.2 mEq/L (3.5-5.1); Sodium 127 mEq/L (136-145); eGFR For African Americans > 60 (> 60); eGFR For Non-African Americans > 60 (> 60)
[2019-12-18 11:43] LABS: Troponin I < 0.03 ng/mL (< 0.04)
[2019-12-18] MEDS ORDERED: Naloxone 0.4 MG/ML INJ IVP PRN (12:40)
[2019-12-18] MEDS ORDERED: Perflutren Lipid Microsphere 1.3 ML in 0.9 % Sodium Chloride 8.7 ML IVP PRN (12:40)
[2019-12-18] MEDS ORDERED: Nitroglycerin 0.4 MG TAB.SUBL SL PRN (12:40)
[2019-12-18] MEDS ORDERED: D5% in Water 1,000 ML IVC PRN (15:57)
[2019-12-18] MEDS ORDERED: *HR* Dextrose 50 % in Water (Vial) 50 ML VIAL IVP PRN (15:57)
[2019-12-18] MEDS ORDERED: Dextrose Gel 15 GM/37.5 ML TUBE PO PRN ×2 (15:57)
[2019-12-18] MEDS: Insulin LISPRO 300 UNITS/3 ML VIAL SQ SCH (16:54)
[2019-12-18] MEDS: *HR* Heparin 5,000 UNIT/ML VIAL SQ SCH (16:54)
[2019-12-18] MEDS ORDERED: Metoprolol XL (24 HR) Succ 50 MG TAB.ER.24H PO SCH (21:00)
[2019-12-18] MEDS ORDERED: Insulin LISPRO 300 UNITS/3 ML VIAL SQ SCH (21:00)
[2019-12-18] MEDS ORDERED: Aspirin Enteric Coated 81 MG Tablet PO SCH (21:00)
[2019-12-18] MEDS ORDERED: *HR* SitaGLIPtin 100 MG TABLET PO SCH (21:00)
[2019-12-19] MEDS: *HR* Heparin 5,000 UNIT/ML VIAL SQ SCH (06:11)
[2019-12-19 07:05] LABS: Hematocrit 41.3 % (35.3-44.9); Hemoglobin 13.6 g/dL (11.5-15.4); Mean Corpuscular HGB Conc 32.9 g/dL (31.6-35.5); Mean Corpuscular Hemoglobin 26.5 pg (28.0-33.3); Mean Corpuscular Volume 80.5 fL (83.0-100.0); Platelet Count 291 K/mcL (140-400); Red Blood Count 5.13 M/mcL (3.82-4.97); Red Cell Distribution Width 12.7 % (11.5-14.5); White Blood Count 6.1 K/mcL (4.3-11.1)
[2019-12-19 07:26] LABS: BUN/Creatinine Ratio 22 (6-26); Blood Urea Nitrogen 15 mg/dL (8-23); Calcium 9.4 mg/dL (8.6-10.3); Carbon Dioxide 29 mEq/L (23-29); Chloride 91 mEq/L (98-107); Glucose 204 mg/dL (70-105); Magnesium 1.8 mg/dL (1.6-2.6); Osmolality,Calculated 273 (280-300); Potassium 3.8 mEq/L (3.5-5.1); Sodium 128 mEq/L (136-145); eGFR For African Americans > 60 (> 60); eGFR For Non-African Americans > 60 (> 60)
[2019-12-19] MEDS ORDERED: Regadenoson 0.4 MG/5 ML SYRINGE IVP ONE (07:26)
[2019-12-19] MEDS: Insulin LISPRO 300 UNITS/3 ML VIAL SQ SCH ×2 (08:00→13:56)
[2019-12-19] MEDS ORDERED: amLODIPine 5 MG TABLET PO SCH (09:00)
[2019-12-19 14:35] VITALS: BP 165/80
[2019-12-19] MEDS ORDERED: Budesonide/Formoterol 80/4.5 1 PUFF INH IH SCH (22:00)
== END 2019-12-19 16:02 | disposition home or self-care (01) ==
LOC: EMEROOARM 10:48 → CDU 10:48 → SUATTDRO 13:31 → CDU 13:57 → 3BNU 18:37
PROVIDERS: ADMIT Pharmacist; ATTEND Nurse Practitioner Adult Health

== ENCOUNTER 2021-09-09 07:44 | Inpatient (IN) ==
[2021-09-09] MEDS ORDERED: Vancomycin 1,000 MG VIAL ONE (08:02)
[2021-09-09] MEDS ORDERED: 0.9 % Sodium Chloride 1,000 ML ONE ×3 (08:02→10:24)
[2021-09-09] MEDS ORDERED: D5% in Water 100 ML ONE (08:03)
[2021-09-09] MEDS ORDERED: 0.9 % Sodium Chloride 250 ML ONE (08:03)
[2021-09-09] MEDS ORDERED: Clindamycin 600 MG/50 ML 600 MG/50 ML IV.SOLN IVPB ONE (08:35)
[2021-09-09] MEDS ORDERED: del Nido Cardioplegia Solution PF ONE ×2 (09:30)
[2021-09-09] MEDS ORDERED: Buckersberg's Blood Cardioplegia PF ONE (09:30)
[2021-09-09] MEDS ORDERED: Norepinephrine 4 MG in 0.9 % Sodium Chloride 250 ML IVC PRN (09:30)
[2021-09-09] MEDS ORDERED: Heparin 15,000 UNIT in 0.9 % Sodium Chloride 500 ML IV ONE (09:30)
[2021-09-09] MEDS ORDERED: *HR* FentaNYL (PF) 100 MCG/2 ML VIAL ONE (09:45)
[2021-09-09] MEDS ORDERED: Heparin 1,000 UNITS/500 mL 1,000 ML ONE (10:23)
[2021-09-09] MEDS ORDERED: Protamine Sulfate 50 MG/5 ML VIAL IVP ONE (10:23)
[2021-09-09] MEDS ORDERED: Iopamidol - 370 200 ML INFUS..BTL ONE (10:23)
[2021-09-09] MEDS ORDERED: *HR* Heparin 10,000 UNIT/10 ML VIAL ONE (10:25)
[2021-09-09] MEDS ORDERED: *HR* Midazolam HCl 2 MG/2 ML VIAL ONE (10:44)
[2021-09-09] MEDS ORDERED: 0.9 % Sodium Chloride 2,000 ML ONE (11:06)
[2021-09-09] MEDS ORDERED: Perflutren Lipid Microsphere 1.3 ML in 0.9 % Sodium Chloride 8.7 ML IVP PRN (11:33)
[2021-09-09] MEDS ORDERED: Budesonide/Formoterol 160/4.5 1 PUFF INH IH PRN (11:34)
[2021-09-09] MEDS ORDERED: Ondansetron 4 MG/2 ML VIAL IVP ONE (13:54)
[2021-09-09] MEDS ORDERED: *HR* Propofol 500 MG/50 ML BOTTLE IVP ONE (13:54)
[2021-09-09] MEDS ORDERED: *HR* Propofol 200 MG/20 ML VIAL IVP ONE (13:54)
[2021-09-09] MEDS ORDERED: Dextrose Gel 15 GM/37.5 ML TUBE PO PRN ×2 (15:10)
[2021-09-09] MEDS ORDERED: D5% in Water 1,000 ML IVC PRN (15:10)
[2021-09-09] MEDS ORDERED: *HR* Dextrose 50 % in Water (Syg) 50 ML SYRINGE IVP PRN (15:10)
[2021-09-09] MEDS ORDERED: Insulin LISPRO 300 UNITS/3 ML VIAL SUBQ SCH ×3 (16:30→21:00)
[2021-09-09] MEDS ORDERED: Metoprolol XL (24 HR) Succ 50 MG TAB.ER.24H PO SCH (21:00)
[2021-09-10 06:59] LABS: Basophils % 0.1 %; Eosinophils % 0.1 %; Hematocrit 35.9 % (35.3-44.9); Hemoglobin 11.7 g/dL (11.5-15.4); Immature Granulocytes % 0.4 % (0-4); Lymphocytes # 0.8 K/mcL (0.6-4.6); Lymphocytes % 8.8 %; Mean Corpuscular HGB Conc 32.6 g/dL (31.6-35.5); Mean Corpuscular Volume 82.7 fL (83.0-100.0); Monocytes # 0.6 K/mcL (0.0-1.3); Monocytes % 6.4 %; Neutrophils # 7.8 K/mcL (1.6-8.9); Platelet Count 261 K/mcL (140-400); Red Blood Count 4.34 M/mcL (3.82-4.97); Red Cell Distribution Width 12.3 % (11.5-14.5); Segmented Neutrophils % 84.2 %
[2021-09-10 07:01] LABS: White Blood Count 9.3 K/mcL (4.3-11.1)
[2021-09-10 07:04] LABS: Prothrombin Time 11.5 Seconds (9.4-12.1)
[2021-09-10 07:24] LABS: BUN/Creatinine Ratio 21 (6-26); Blood Urea Nitrogen 15 mg/dL (8-23); Calcium 8.9 mg/dL (8.6-10.3); Carbon Dioxide 28 mEq/L (23-29); Chloride 99 mEq/L (98-107); Glucose 264 mg/dL (70-105); Osmolality,Calculated 284 (280-300); Potassium 4.3 mEq/L (3.5-5.1); Sodium 132 mEq/L (136-145); eGFR For African Americans > 60 (> 60); eGFR For Non-African Americans > 60 (> 60)
[2021-09-10] MEDS ORDERED: *HR* SitaGLIPtin 100 MG TABLET PO SCH (07:45)
[2021-09-10 08:13] VITALS: BP 159/63
[2021-09-10] MEDS: Insulin LISPRO 300 UNITS/3 ML VIAL SUBQ SCH ×2 (08:30→12:07)
[2021-09-10] MEDS ORDERED: amLODIPine 5 MG TABLET PO SCH (09:00)
[2021-09-10] MEDS ORDERED: *HR* Metformin 500 MG TABLET PO SCH (09:00)
[2021-09-10] MEDS ORDERED: *HR* Glimepiride 4 MG TABLET PO SCH (09:00)
[2021-09-10] MEDS ORDERED: Aspirin Enteric Coated 81 MG Tablet PO SCH ×2 (09:00→21:00)
[2021-09-10 12:05] VITALS: PULSE 68; TEMP 97.5; O2SAT 98
== END 2021-09-10 13:55 | disposition home or self-care (01) | DRG 267 ==
LOC: INVDIALAB 07:44 → 2NNU 07:45
PROVIDERS: ADMIT Nurse Practitioner Primary Care; ATTEND Thoracic Surgery (Cardiothoracic Vascular Surgery)